=== PATIENT | male | born 1965 | race American Indian/Alaskan Native ===

== ENCOUNTER 2019-02-07 00:53 | Emergency (ER) | payer MEDICAID ==
[2019-02-07 02:44] LABS: INR 1.04 (0.87-1.13)
[2019-02-07 02:45] LABS: Partial Thromboplastin Time 31.1 Sec. (24.2-36.6)
[2019-02-07] MEDS ORDERED: LOVENOX SUB-Q ONE (04:49)
--- NOTE | 2019-02-07 06:37 | Emergency Department Report ---
ED General Adult HPI - General Chief complaint: Recheck/Abnormal Lab/Rx Stated complaint: ABNORMAL LABS Source: patient Mode of arrival: Ambulatory Limitations: No Limitations - History of Present Illness Initial comments: This is a 53-year-old male with a history of mitral valve prolapse who presented to the ED with subtherapeutic INR from Coumadin after being sent to the ED by his locker attendant Dr. Thomas to get Lovenox injection. Patient had no taken his Coumadin for one week and when he visited his locker attendant office 12 hours ago his INR was low, and to help prevent coagulation, the patient was given a prescription of Lovenox but could not have it filled so he was told to come to the ED to better Lovenox injection. Patient states that he has not taken his Coumadin for over 1 week and had to be evaluated by his locker attendant before a new prescription of Coumadin call be return for him. Patient denies chest pain, shortness of breath, dizziness, nosebleed, leg pain, shortness of breath, dizziness or headache. MD Complaint: Subtherapeutic INR -: Sudden, hour(s) (12) Radiation: non-radiation Severity scale (0 -10): 0 Quality: dull Improves with: none Worsens with: none Associated Symptoms: denies other symptoms. denies: confusion, chest pain, cough, diaphoresis, fever/chills, headaches, malaise, nausea/vomiting, shortness of breath, syncope Treatments Prior to Arrival: none - Related Data Home Medications Medication Instructions Recorded Confirmed Last Taken Omeprazole 40 mg PO DAILY 03/27/15 07/17/15 07/16/15 40 mg oxyCODONE /ACETAMINOPHEN [Percocet 1 tab PO Q6HR PRN 03/27/15 07/17/15 07/15/15 5/325 mg] Acetaminophen [Acetaminophen TAB] 325 mg PO PRN PRN 07/17/15 07/17/15 07/15/15 Aspirin EC [Halfprin EC] 81 mg PO DAILY 07/17/15 07/17/15 07/16/15 AtorvaSTATin [Lipitor] 20 mg PO DAILY 07/17/15 07/17/15 07/16/15 Docusate Sodium [Promolaxin TAB] 100 mg PO DAILY 07/17/15 07/17/15 07/16/15 Lipase/Protease/Amylase [Creon 1 cap PO DAILY 07/17/15 07/17/15 07/16/15 24,000 Units Capsule] Metoprolol Tartrate 25 mg PO DAILY 07/17/15 07/17/15 07/16/15 Warfarin Sodium 7.5 mg PO DAILY 07/17/15 07/17/15 07/16/15 Allergies Allergy/AdvReac Type Severity Reaction Status Date / Time No Known Allergies Allergy Verified 07/17/15 07:47 ED Review of Systems ROS: Stated complaint: ABNORMAL LABS Other details as noted in HPI Constitutional: denies: chills, fever Eyes: denies: eye pain, eye discharge, vision change ENT: denies: ear pain, throat pain Respiratory: denies: cough, shortness of breath, wheezing Cardiovascular: denies: chest pain, palpitations Endocrine: no symptoms reported Gastrointestinal: denies: abdominal pain, nausea, diarrhea Genitourinary: denies: urgency, dysuria Musculoskeletal: denies: back pain, joint swelling, arthralgia Skin: denies: rash, lesions Neurological: denies: headache, weakness, paresthesias Psychiatric: denies: anxiety, depression Hematological/Lymphatic: denies: easy bleeding, easy bruising ED Past Medical Hx - Past Medical History Previous Medical History?: Yes Hx Hypertension: No Hx Congestive Heart Failure: No Hx Diabetes: Yes (unsure if he has it or not) Hx GERD: Yes Hx Liver Disease: Yes (chronic pancreatitis) Hx Renal Disease: Yes (Acute renal failure) Hx Arthritis: Yes Hx Asthma: No Hx COPD: No Hx HIV: No Additional medical history: PUD, pancreatitis, heart murmur - Surgical History Past Surgical History?: Yes Additional Surgical History: heart cath. mitral valve replacemnt - Social History Smoking Status: Current Every Day Smoker Substance Use Type: Alcohol, Marijuana - Medications Home Medications: Home Medications Medication Instructions Recorded Confirmed Last Taken Type Omeprazole 40 mg PO DAILY 03/27/15 07/17/15 07/16/15 History 40 mg oxyCODONE /ACETAMINOPHEN [Percocet 1 tab PO Q6HR PRN 03/27/15 07/17/15 07/15/15 History 5/325 mg] Acetaminophen [Acetaminophen TAB] 325 mg PO PRN PRN 07/17/15 07/17/15 07/15/15 History Aspirin EC [Halfprin EC] 81 mg PO DAILY 07/17/15 07/17/15 07/16/15 History AtorvaSTATin [Lipitor] 20 mg PO DAILY 07/17/15 07/17/15 07/16/15 History Docusate Sodium [Promolaxin TAB] 100 mg PO DAILY 07/17/15 07/17/15 07/16/15 History Lipase/Protease/Amylase [Creon Dr 1 cap PO DAILY 07/17/15 07/17/15 07/16/15 History 24,000 Units Capsule] Metoprolol Tartrate 25 mg PO DAILY 07/17/15 07/17/15 07/16/15 History Warfarin Sodium 7.5 mg PO DAILY 07/17/15 07/17/15 07/16/15 History ED Physical Exam - General Limitations: No Limitations General appearance: alert, in no apparent distress - Head Head exam: Present: atraumatic, normocephalic, normal inspection - Eye Eye exam: Present: normal appearance, PERRL, EOMI - ENT ENT exam: Present: normal exam, normal orophraynx, mucous membranes moist, TM's normal bilaterally, normal external ear exam - Neck Neck exam: Present: normal inspection, full ROM - Respiratory Respiratory exam: Present: normal lung sounds bilaterally. Absent: respiratory distress, wheezes, rales, rhonchi, chest wall tenderness, accessory muscle use, decreased breath sounds - Cardiovascular Cardiovascular Exam: Present: regular rate, normal rhythm, normal heart sounds. Absent: systolic murmur, diastolic murmur, rubs, gallop - GI/Abdominal GI/Abdominal exam: Present: soft, normal bowel sounds. Absent: tenderness, guarding, rebound, hyperactive bowel sounds, hypoactive bowel sounds - Rectal Rectal exam: Present: deferred - Extremities Exam Extremities exam: Present: normal inspection, full ROM, normal capillary refill - Back Exam Back exam: Present: normal inspection, full ROM - Neurological Exam Neurological exam: Present: alert, oriented X3, CN II-XII intact, normal gait, reflexes normal - Psychiatric Psychiatric exam: Present: normal affect, normal mood - Skin Skin exam: Present: warm, dry, intact, normal color. Absent: rash ED Course Vital Signs 02/07/19 01:00 Temperature 98.4 F Pulse Rate 86 Respiratory 18 Rate Blood Pressure 143/83 O2 Sat by Pulse 97 Oximetry - Reevaluation(s) Reevaluation #1: 02/07/19 06:34 This is a 53-year-old male with a history of mitral valve prolapse who presented to the ED with subtherapeutic INR from Coumadin after being sent to the ED by his locker attendant Dr. Thomas to get Lovenox injection. Patient had no taken his Coumadin for one week and when he visited his locker attendant office 12 hours ago his INR was low, and to help prevent coagulation, the patient was given a prescription of Lovenox but could not have it filled so he was told to come to the ED to better Lovenox injection. In the ED, patient is alert and oriented 3 and is not in distress. Patient lab test results show subtherapeutic INR or 1.04. Patient was given Lovenox injection 60 mg subcutaneously. Patient already has prescription filled for Coumadin and she'll start his Coumadin today. Patient was advised to follow-up with his locker attendant in 5-7 days for repeat reevaluation. Patient was otherwise advised to return to the ED immediately if symptoms get worse. ED Medical Decision Making - Medical Decision Making This is a 53-year-old male with a history of mitral valve prolapse who presented to the ED with subtherapeutic INR from Coumadin after being sent to the ED by his locker attendant Dr. Thomas to get Lovenox injection. Patient had no taken his Coumadin for one week and when he visited his locker attendant office 12 hours ago his INR was low, and to help prevent coagulation, the patient was given a prescription of Lovenox but could not have it filled so he was told to come to the ED to better Lovenox injection. In the ED, patient is alert and oriented 3 and is not in distress. Patient lab test results show subtherapeutic INR or 1.04. Patient was given Lovenox injection 60 mg subcutaneously. Patient already has prescription filled for Coumadin and she'll start his Coumadin today. Patient was advised to follow-up with his locker attendant in 5-7 days for repeat reevaluation. Patient was otherwise advised to return to the ED immediately if symptoms get worse. - Differential Diagnosis Subtherapeutic INR Critical care attestation.: If time is entered above; I have spent that time in minutes in the direct care of this critically ill patient, excluding procedure time. ED Disposition Clinical Impression: Subtherapeutic anticoagulation Disposition: DC-01 TO HOME OR SELFCARE Is pt being admited?: No Does the pt Need Aspirin: No Condition: Stable Additional Instructions: Take your previously prescribed medications. Follow-up with your primary care physician and your locker attendant as advised. Return to the ED immediately if symptoms get worse. Referrals: STACEY HEAD MD [Primary Care Provider] - 3-5 Days Time of Disposition: 06:32 Print Language: MAURITANIAN
[2019-02-07 06:45] VITALS: BP 115/76
== END 2019-02-07 06:45 | disposition home or self-care (01) ==
LOC: ED 00:53
DX: R79.1 Abnormal coagulation profile (principal); E11.9 Type 2 diabetes mellitus without complications; K21.9 Gastro-esophageal reflux disease without esophagitis; M19.90 Unspecified osteoarthritis, unspecified site; K27.9 Peptic ulcer, site unspecified, unspecified as acute or chronic, without hemorrhage or perforation; I34.1 Nonrheumatic mitral (valve) prolapse; F17.200 Nicotine dependence, unspecified, uncomplicated; F12.10 Cannabis abuse, uncomplicated; Z90.49 Acquired absence of other specified parts of digestive tract; Z79.899 Other long term (current) drug therapy
CPT/HCPCS: 36415; 85610; 85730; 96372; 99283; J1650

== ENCOUNTER 2021-07-24 20:25 | Inpatient (IN) | payer SELFPAY ==
--- NOTE | 2021-07-24 21:09 | XRay Report ---
CHEST 1 VIEW 07/24/2021 8:49 PM INDICATION / CLINICAL INFORMATION: Dyspnea. COMPARISON: May 2011 FINDINGS: SUPPORT DEVICES: None. HEART / MEDIASTINUM: No significant abnormality. LUNGS / PLEURA: No significant pulmonary or pleural abnormality. No pneumothorax. ADDITIONAL FINDINGS: No significant additional findings. IMPRESSION: 1. No acute findings. Signer Name: Nikhil Cárdenas DO Signed: 07/24/2021 9:04 PM Workstation Name: [id number]
[2021-07-24 21:10] LABS: Basophils # (Auto) 0.1 K/mm3 (0.0-0.1); Basophils % (Auto) 1.1 % (0.0-1.8); Eosinophils % (Auto) 0.3 % (0.0-4.3); Lymphocytes # (Auto) 1.3 K/mm3 (1.2-5.4); Lymphocytes % (Auto) 15.7 % (13.4-35.0); Mean Corpuscular HGB Conc 32 % (32-34); Mean Corpuscular Volume 101 fl (84-94); Monocytes # (Auto) 0.5 K/mm3 (0.0-0.8); Monocytes % (Auto) 6.1 % (0.0-7.3); Platelet Count 215 K/mm3 (140-440); Red Blood Count 1.28 M/mm3 (3.65-5.03)
[2021-07-24 21:12] LABS: Red Cell Distribution Width 21.3 % (13.2-15.2)
[2021-07-24 21:14] LABS: Hemoglobin 4.2 gm/dl (11.8-15.2)
[2021-07-24 21:24] LABS: Creatine Kinase MB 1.4 ng/mL (0.0-4.0)
[2021-07-24 21:25] LABS: Alanine Aminotransferase 8 units/L (7-56); Blood Urea Nitrogen 18 mg/dL (9-20); Calcium 8.7 mg/dL (8.4-10.2); Hemolysis Index 11
[2021-07-24 21:26] LABS: BUN/Creatinine Ratio 26
[2021-07-24 21:30] LABS: INR 5.26 (0.87-1.13)
[2021-07-24] MEDS: SODIUM CHLORIDE 0.9% 1000 ML 1,000 ML IV ONE (21:45)
[2021-07-24] MEDS: PHYTONADIONE(ADULT ONLY) 10 MG in SODIUM CHLORIDE 0.9% 50 ML IV ONE (22:12)
[2021-07-24] MEDS: SODIUM CHLORIDE 0.9% 500 ML 500 ML IV ONE (22:13)
[2021-07-24] MEDS ORDERED: PANTOPRAZOLE 40 MG INJ IV ONE (22:26)
--- NOTE | 2021-07-24 22:28 | Emergency Department Report ---
ED Palpitations HPI - General Chief Complaint: Arrhythmia/Palpitations Stated Complaint: TACHYCARDIA Time Seen by Provider: 07/24/21 20:33 Source: patient, EMS Mode of arrival: Stretcher Limitations: No Limitations - History of Present Illness Initial Comments: 56 years old with history of chronic pancreatitis , mitral valve regurge s/p repair on coumadin , peptic ulcer disease brought in by AMS for heart starting racing about 3 days ago. Been having dark stools for 2-3 weeks" Pt has not been to the doctor to have that checked out at this time; states "have had this episode before but it went away on it's own" EMS states pt was sinus tach on monitor HR in the 130-140's [address] to the hospital. Complaint: rapid heart beat -: Gradual, days(s) Context: occured during rest Arrythmia History: on anti-coagulants Associated Symptoms: denies: denies other symptoms, chest pain, syncope, near- syncope, diaphoresis, cough - Related Data Home Medications Medication Instructions Recorded Confirmed Last Taken Omeprazole 40 mg PO DAILY 03/27/15 07/17/15 07/16/15 40 mg oxyCODONE /ACETAMINOPHEN [Percocet 1 tab PO Q6HR PRN 03/27/15 07/17/15 07/15/15 5/325 mg] Acetaminophen [Acetaminophen TAB] 325 mg PO PRN PRN 07/17/15 07/17/15 07/15/15 Aspirin EC [Halfprin EC] 81 mg PO DAILY 07/17/15 07/17/15 07/16/15 AtorvaSTATin [Lipitor] 20 mg PO DAILY 07/17/15 07/17/15 07/16/15 Docusate Sodium [Promolaxin TAB] 100 mg PO DAILY 07/17/15 07/17/15 07/16/15 Lipase/Protease/Amylase [Creon Dr 1 cap PO DAILY 07/17/15 07/17/15 07/16/15 24,000 Unit Capsule] Metoprolol Tartrate 25 mg PO DAILY 07/17/15 07/17/15 07/16/15 Warfarin Sodium 7.5 mg PO DAILY 07/17/15 07/17/15 07/16/15 Allergies Allergy/AdvReac Type Severity Reaction Status Date / Time No Known Allergies Allergy Verified 07/17/15 07:47 ED Review of Systems ROS: Stated complaint: TACHYCARDIA Other details as noted in HPI Constitutional: denies: chills, fever Eyes: denies: eye pain, eye discharge, vision change ENT: denies: ear pain, throat pain Respiratory: denies: cough, shortness of breath, wheezing Cardiovascular: denies: chest pain, palpitations Endocrine: no symptoms reported Gastrointestinal: denies: abdominal pain, nausea, diarrhea Genitourinary: denies: urgency, dysuria Musculoskeletal: denies: back pain, joint swelling, arthralgia Skin: denies: rash, lesions Neurological: denies: headache, weakness, paresthesias Psychiatric: denies: anxiety, depression Hematological/Lymphatic: denies: easy bleeding, easy bruising ED Past Medical Hx - Past Medical History Previous Medical History?: No Hx Hypertension: Yes Hx Congestive Heart Failure: No Hx Diabetes: Yes (unsure if he has it or not) Hx GERD: Yes Hx Liver Disease: Yes (chronic pancreatitis) Hx Renal Disease: Yes (Acute renal failure) Hx Arthritis: Yes Hx Asthma: No Hx COPD: No Hx HIV: No Additional medical history: PUD, pancreatitis, heart murmur - Surgical History Past Surgical History?: Yes Additional Surgical History: heart cath. mitral valve replacemnt - Social History Smoking Status: Light Tobacco Smoker Substance Use Type: Alcohol - Medications Home Medications: Home Medications Medication Instructions Recorded Confirmed Last Taken Type Omeprazole 40 mg PO DAILY 03/27/15 07/17/15 07/16/15 History 40 mg oxyCODONE /ACETAMINOPHEN [Percocet 1 tab PO Q6HR PRN 03/27/15 07/17/15 07/15/15 History 5/325 mg] Acetaminophen [Acetaminophen TAB] 325 mg PO PRN PRN 07/17/15 07/17/15 07/15/15 History Aspirin EC [Halfprin EC] 81 mg PO DAILY 07/17/15 07/17/15 07/16/15 History AtorvaSTATin [Lipitor] 20 mg PO DAILY 07/17/15 07/17/15 07/16/15 History Docusate Sodium [Promolaxin TAB] 100 mg PO DAILY 07/17/15 07/17/15 07/16/15 History Lipase/Protease/Amylase [Creon Dr 1 cap PO DAILY 07/17/15 07/17/15 07/16/15 History 24,000 Unit Capsule] Metoprolol Tartrate 25 mg PO DAILY 07/17/15 07/17/15 07/16/15 History Warfarin Sodium 7.5 mg PO DAILY 07/17/15 07/17/15 07/16/15 History ED Physical Exam - General Limitations: No Limitations General appearance: alert - Head Head exam: Present: atraumatic, normocephalic - Eye Eye exam: Present: normal appearance - ENT ENT exam: Present: mucous membranes moist - Neck Neck exam: Present: normal inspection - Respiratory Respiratory exam: Present: normal lung sounds bilaterally. Absent: respiratory distress - Cardiovascular Cardiovascular Exam: Present: normal rhythm, tachycardia. Absent: systolic mu rmur, diastolic murmur, rubs, gallop - GI/Abdominal GI/Abdominal exam: Present: soft, normal bowel sounds - Rectal Rectal exam: Present: deferred - Extremities Exam Extremities exam: Present: normal inspection - Back Exam Back exam: Present: normal inspection - Neurological Exam Neurological exam: Present: alert, oriented X3 - Psychiatric Psychiatric exam: Present: normal affect, normal mood - Skin Skin exam: Present: warm, dry, intact, normal color. Absent: rash ED Course Vital Signs 07/24/21 20:31 Temperature 98.6 F Pulse Rate 124 H Respiratory 22 Rate Blood Pressure 124/67 O2 Sat by Pulse 100 Oximetry ED Medical Decision Making - Lab Data Result diagrams: 07/24/21 20:43 07/24/21 20:43 - Radiology Data Radiology results: report reviewed, image reviewed - Medical Decision Making HR on arrival was 140s work up showed : - Low H.H : typed and screened packed RBCs , 3 units - Melena : will start PPI - Increased INR : will reverse with Vitamin K - Tachy : sinus seems ry to anemia , corrected with fluids Critical care attestation.: If time is entered above; I have spent that time in minutes in the direct care of this critically ill patient, excluding procedure time. ED Disposition Clinical Impression: Palpitation, Anemia, Supratherapeutic INR, Melena Disposition: ADMITTED INPATIENT Is pt being admited?: Yes Does the pt Need Aspirin: No Condition: Stable Referrals: NANCY PINTO MD [Primary Care Provider] - 3-5 Days
[2021-07-24] MEDS ORDERED: ACETAMINOPHEN 325 MG TAB PO PRN ×2 (22:31→22:50)
[2021-07-24] MEDS ORDERED: ONDANSETRON 4 MG/2 ML INJ IV PRN ×2 (22:31→22:50)
[2021-07-24] MEDS ORDERED: ALBUTEROL 2.5 MG/3 ML NEBU IH PRN (22:50)
[2021-07-24] MEDS ORDERED: MORPHINE 2 MG/1 ML INJ IV PRN (22:50)
[2021-07-24] MEDS ORDERED: HYDROmorphone 1 MG/1 ML INJ IV PRN (22:50)
--- NOTE | 2021-07-24 22:58 | History and Physical Report ---
History of Present Illness Date of examination: 07/24/21 Date of admission: 07/24/21 Chief complaint: Arrhythmia Palpitation History of present illness: 56 years old with history of chronic pancreatitis , mitral valve regurge s/p repair on coumadin , peptic ulcer disease was brought to the emergency room because of heart starting racing about 3 days ago. Patient having dark stools for 2-3 weeks" Pt has not been to the doctor to have that checked out at this time; states "have had this episode before but it went away on it's own" EMS states pt was sinus tach on monitor HR in the 130-140's on the way to the hospital. In the emergency room patient hemoglobin is 4.2 and hematocrit 13.2, patient is on warfarin. Patient PT is 55.8 and INR 5.26. So going to admit the patient. We will transfuse 3 unit of packed red blood cell. Patient also get vitamin K 10 mg IV x1 dose. Will consult GI for evaluation Past History Past Medical History: arthritis (PUD, pancreatitis, heart murmur), diabetes, GERD, hypertension, liver disease, renal failure Past Surgical History: Other (heart cath. mitral valve replacemnt) Social history: other (Light Tobacco Smoker) Family history: no significant family history Medications and Allergies Allergies Allergy/AdvReac Type Severity Reaction Status Date / Time No Known Allergies Allergy Verified 07/17/15 07:47 Home Medications Medication Instructions Recorded Confirmed Last Taken Type Omeprazole 40 mg PO DAILY 03/27/15 07/17/15 07/16/15 History 40 mg oxyCODONE /ACETAMINOPHEN [Percocet 1 tab PO Q6HR PRN 03/27/15 07/17/15 07/15/15 History 5/325 mg] Acetaminophen [Acetaminophen TAB] 325 mg PO PRN PRN 07/17/15 07/17/15 07/15/15 History Aspirin EC [Halfprin EC] 81 mg PO DAILY 07/17/15 07/17/15 07/16/15 History AtorvaSTATin [Lipitor] 20 mg PO DAILY 07/17/15 07/17/15 07/16/15 History Docusate Sodium [Promolaxin TAB] 100 mg PO DAILY 07/17/15 07/17/15 07/16/15 History Lipase/Protease/Amylase [Creon Dr 1 cap PO DAILY 07/17/15 07/17/15 07/16/15 History 24,000 Unit Capsule] Metoprolol Tartrate 25 mg PO DAILY 07/17/15 07/17/15 07/16/15 History Warfarin Sodium 7.5 mg PO DAILY 07/17/15 07/17/15 07/16/15 History Active Meds: Active Medications Acetaminophen (Acetaminophen 325 Mg Tab) 650 mg PO Q4H PRN PRN Reason: Pain MILD(1-3)/Fever >100.5/BECERRA Acetaminophen (Acetaminophen 325 Mg Tab) 650 mg PO Q4H PRN PRN Reason: Pain MILD(1-3)/Fever >100.5/BECERRA Albuterol (Albuterol 2.5 Mg/3 Ml Nebu) 2.5 mg IH Q3HRT PRN PRN Reason: Shortness Of Breath Albuterol/Ipratropium (Ipratropium/Albuterol Sulfate 3 Ml Ampul.Neb) 1 ampul IH Q6HRT MAGGIE Atorvastatin Calcium (Atorvastatin 20 Mg Tab) 20 mg PO DAILY MAGGIE Hydromorphone HCl (Hydromorphone 1 Mg/1 Ml Inj) 0.5 mg IV Q3H PRN PRN Reason: Pain , Severe (7-10) Dextrose/Sodium Chloride (D5/0.45ns) 1,000 mls @ 100 mls/hr IV DIRECT MAGGIE Miscellaneous Medication (Lipase/Protease/Amylase [Creon Dr 24,000 Unit Capsule]) 1 cap PO DAILY MAGGIE Morphine Sulfate (Morphine 2 Mg/1 Ml Inj) 2 mg IV Q4H PRN PRN Reason: Pain, Moderate (4-6) Ondansetron HCl (Ondansetron 4 Mg/2 Ml Inj) 4 mg IV Q8H PRN PRN Reason: Nausea And Vomiting Ondansetron HCl (Ondansetron 4 Mg/2 Ml Inj) 4 mg IV Q8H PRN PRN Reason: Nausea And Vomiting Sodium Chloride (Sodium Chloride 0.9% 10 Ml Flush Syringe) 10 ml IV BID MAGGIE Sodium Chloride (Sodium Chloride 0.9% 10 Ml Flush Syringe) 10 ml IV PRN PRN PRN Reason: LINE FLUSH Sodium Chloride (Sodium Chloride 0.9% 10 Ml Flush Syringe) 10 ml IV BID MAGGIE Sodium Chloride (Sodium Chloride 0.9% 10 Ml Flush Syringe) 10 ml IV PRN PRN PRN Reason: LINE FLUSH Review of Systems All systems: negative Cardiovascular: palpitations, lightheadedness Gastrointestinal: melena Exam - Constitutional Vitals: Temp Pulse Resp BP Pulse Ox 98.6 F 124 H 22 124/67 100 07/24/21 20:31 07/24/21 20:31 07/24/21 20:31 07/24/21 20:31 07/24/21 20:31 General appearance: Present: no acute distress, well-nourished - EENT Eyes: Present: PERRL ENT: hearing intact, clear oral mucosa - Neck Neck: Present: supple, normal ROM - Respiratory Respiratory effort: normal Respiratory: bilateral: CTA - Cardiovascular Heart Sounds: Present: S1 & S2. Absent: rub, click - Extremities Extremities: pulses symmetrical, No edema Peripheral Pulses: within normal limits - Abdominal General gastrointestinal: Present: soft, non-tender, non-distended, normal bowel sounds Male genitourinary: Present: normal - Integumentary Integumentary: Present: clear, warm, dry - Musculoskeletal Musculoskeletal: gait normal, strength equal bilaterally - Psychiatric Psychiatric: appropriate mood/affect, intact judgment & insight - Neurologic Neurologic: CNII-XII intact, moves all extremities HEART Score - HEART Score Troponin: Troponin T < 0.010 ng/mL (0.00-0.029) 07/24/21 20:43 Results - Labs CBC & Chem 7: 07/24/21 20:43 07/24/21 20:43 Labs: Laboratory Last Values WBC 8.3 K/mm3 (4.5-11.0) 07/24/21 20:43 RBC 1.28 M/mm3 (3.65-5.03) L 07/24/21 20:43 Hgb 4.2 gm/dl (11.8-15.2) L* 07/24/21 20:43 Hct 13.0 % (35.5-45.6) L* 07/24/21 20:43 MCV 101 fl (84-94) H 07/24/21 20:43 MCH 33 pg (28-32) H 07/24/21 20:43 MCHC 32 % (32-34) 07/24/21 20:43 RDW 21.3 % (13.2-15.2) H 07/24/21 20:43 Plt Count 215 K/mm3 (140-440) 07/24/21 20:43 Lymph % (Auto) 15.7 % (13.4-35.0) 07/24/21 20:43 Kerr % (Auto) 6.1 % (0.0-7.3) 07/24/21 20:43 Eos % (Auto) 0.3 % (0.0-4.3) 07/24/21 20:43 Baso % (Auto) 1.1 % (0.0-1.8) 07/24/21 20:43 Lymph # (Auto) 1.3 K/mm3 (1.2-5.4) 07/24/21 20:43 Kerr # (Auto) 0.5 K/mm3 (0.0-0.8) 07/24/21 20:43 Eos # (Auto) 0.0 K/mm3 (0.0-0.4) 07/24/21 20:43 Baso # (Auto) 0.1 K/mm3 (0.0-0.1) 07/24/21 20:43 Seg Neutrophils % 76.8 % (40.0-70.0) H 07/24/21 20:43 Seg Neutrophils # 6.4 K/mm3 (1.8-7.7) 07/24/21 20:43 PT 55.8 Sec. (12.2-14.9) H 07/24/21 20:43 INR 5.26 (0.87-1.13) H* 07/24/21 20:43 Sodium 137 mmol/L (137-145) 07/24/21 20:43 Potassium 3.9 mmol/L (3.6-5.0) 07/24/21 20:43 Chloride 103.3 mmol/L (98-107) 07/24/21 20:43 Carbon Dioxide 20 mmol/L (22-30) L 07/24/21 20:43 Anion Gap 18 mmol/L 07/24/21 20:43 BUN 18 mg/dL (9-20) 07/24/21 20:43 Creatinine 0.7 mg/dL (0.8-1.3) L 07/24/21 20:43 Estimated GFR > 60 ml/min 07/24/21 20:43 BUN/Creatinine Ratio 26 % 07/24/21 20:43 Glucose 107 mg/dL (75-100) H 07/24/21 20:43 Calcium 8.7 mg/dL (8.4-10.2) 07/24/21 20:43 Magnesium 1.80 mg/dL (1.7-2.3) 07/24/21 20:43 Total Bilirubin 0.20 mg/dL (0.1-1.2) 07/24/21 20:43 AST 22 units/L (5-40) 07/24/21 20:43 ALT 8 units/L (7-56) 07/24/21 20:43 Alkaline Phosphatase 57 units/L (35-129) 07/24/21 20:43 Total Creatine Kinase 73 units/L (55-170) 07/24/21 20:43 CK-MB (CK-2) 1.4 ng/mL (0.0-4.0) 07/24/21 20:43 CK-MB (CK-2) Rel Index 1.9 (0-4) 07/24/21 20:43 Troponin T < 0.010 ng/mL (0.00-0.029) 07/24/21 20:43 Total Protein 6.2 g/dL (6.3-8.2) L 07/24/21 20:43 Albumin 4.0 g/dL (3.9-5) 07/24/21 20:43 Albumin/Globulin Ratio 1.8 % 07/24/21 20:43 Lipase 28 units/L (13-60) 07/24/21 20:43 Blood Type O POSITIVE 07/24/21 21:34 Crossmatch See Detail 07/24/21 21:34 Microbiology: Microbiology 07/24/21 Unknown Stool Stool Occult Blood (PATO) - Final - Imaging and Cardiology Chest x-ray: report reviewed Assessment and Plan VTE prophylaxis?: Mechanical Plan of care discussed with patient/family: Yes - Patient Problems (1) Anemia Current Visit: Yes Status: Acute Plan to address problem: Admit the patient to the medical telemetry. NPO. Protonix 40 mg IV every 12 hours. Were giving 3 unit of packed red blood cell. Reconsult GI for evaluation. Recheck CBC in the morning. We will hold the warfarin (2) Melena Current Visit: Yes Status: Acute Plan to address problem: NPO. Protonix 40 mg IV every 12 hours. Were giving 3 unit of packed red blood cell. Reconsult GI for evaluation. Recheck CBC in the morning. We will hold the warfarin (3) Palpitation Current Visit: Yes Status: Acute Plan to address problem: Most likely secondary to dehydration and anemia. We put the patient on D5 half- normal saline at the rate of 100 cc/h. Transfusing 3 unit of packed red blood cell. Consult cardiology if needed (4) Supratherapeutic INR Current Visit: Yes Status: Acute Plan to address problem: We hold the Coumadin. Patient got 20 mg of vitamin K IV. Recheck PT/INR in the morning (5) Alcohol abuse Current Visit: No Status: Acute Plan to address problem: Counseled regarding quit drinking. Put the patient on thiamine folic acid banana bag (6) Alcoholic liver disease Current Visit: No Status: Acute Plan to address problem: NPO. Protonix 40 mg IV every 12 hours. consult GI for evaluation. Recheck Cmp in the morning. (7) Chronic alcoholic pancreatitis Current Visit: No Status: Acute Plan to address problem: NPO. Protonix 40 mg IV every 12 hours. consult GI for evaluation. Recheck Cmp in the morning. (8) Peptic ulcer disease Current Visit: No Status: Acute Plan to address problem: Protonix 40 mg IV every 12 hours. consult GI for evaluation. Recheck Cmp in the morning. (9) Mitral valve replaced Current Visit: Yes Status: Acute Plan to address problem: We hold the Coumadin. Patient get 10 mg of vitamin K IV x1 dose. Restart Coumadin when okay with GI. (10) DVT prophylaxis Current Visit: Yes Status: Acute Plan to address problem: SCD for DVT prophylaxis. Protonix 40 mg IV every 12 hours for GI prophylaxis. Patient is a full code
[2021-07-25] MEDS ORDERED: SODIUM CHLORIDE 0.9% 500 ML 500 ML ONE (00:34)
[2021-07-25] MEDS ORDERED: IPRATROPIUM/ALBUTEROL SULFATE 3 ML AMPUL.NEB IH SCH ×2 (02:00→08:00)
[2021-07-25] MEDS: SODIUM CHLORIDE 0.9% 1000 ML 1,000 ML IV ONE (02:35)
[2021-07-25] MEDS: SODIUM CHLORIDE 0.9% 500 ML 500 ML IV ONE (02:36)
[2021-07-25] MEDS: PHYTONADIONE(ADULT ONLY) 10 MG in SODIUM CHLORIDE 0.9% 50 ML IV ONE (02:37)
[2021-07-25] MEDS: D5W/0.45% NACL 1,000 ML IV SCH ×2 (08:57→22:30)
[2021-07-25] MEDS: PANTOPRAZOLE 40 MG INJ IV SCH ×2 (09:02→22:29)
[2021-07-25] MEDS: METOPROLOL TARTRATE 25 MG TAB PO SCH (09:30)
[2021-07-25] MEDS ORDERED: AMYLASE PO SCH (10:00)
[2021-07-25] MEDS ORDERED: [UNRECOGNIZED DRUG - OTHER] PO SCH (10:00)
[2021-07-25] MEDS ORDERED: LIPASE PO SCH (10:00)
[2021-07-25] MEDS ORDERED: PROTEASE PO SCH (10:00)
[2021-07-25 15:17] LABS: Basophils % (Auto) 0.7 % (0.0-1.8); Eosinophils # (Auto) 0.1 K/mm3 (0.0-0.4); Eosinophils % (Auto) 1.1 % (0.0-4.3); Hematocrit 26.6 % (35.5-45.6); Hemoglobin 8.7 gm/dl (11.8-15.2); Lymphocytes # (Auto) 1.2 K/mm3 (1.2-5.4); Lymphocytes % (Auto) 16.3 % (13.4-35.0); Mean Corpuscular HGB Conc 33 % (32-34); Mean Corpuscular Volume 95 fl (84-94); Monocytes # (Auto) 0.6 K/mm3 (0.0-0.8); Monocytes % (Auto) 7.6 % (0.0-7.3); Platelet Count 144 K/mm3 (140-440); Red Blood Count 2.81 M/mm3 (3.65-5.03); Red Cell Distribution Width 17.8 % (13.2-15.2)
[2021-07-25 15:27] LABS: Blood Urea Nitrogen 13 mg/dL (9-20); Calcium 7.6 mg/dL (8.4-10.2); Hemolysis Index 3; INR 1.19 (0.87-1.13)
[2021-07-25 15:28] LABS: BUN/Creatinine Ratio 19
--- NOTE | 2021-07-25 15:59 | Progress Note ---
Assessment and Plan (1) Anemia Current Visit: Yes Status: Acute Plan to address problem: Admit the patient to the medical telemetry. NPO. Protonix 40 mg IV every 12 hours. Were giving 3 unit of packed red blood cell. Reconsult GI for evaluation. Recheck CBC in the morning. We will hold the warfarin (2) Melena Current Visit: Yes Status: Acute Plan to address problem: NPO. Protonix 40 mg IV every 12 hours. Were giving 3 unit of packed red blood cell. Reconsult GI for evaluation. Recheck CBC in the morning. We will hold the warfarin (3) Palpitation Current Visit: Yes Status: Acute Plan to address problem: Most likely secondary to dehydration and anemia. We put the patient on D5 half- normal saline at the rate of 100 cc/h. Transfusing 3 unit of packed red blood cell. Consult cardiology if needed (4) Supratherapeutic INR Current Visit: Yes Status: Acute Plan to address problem: We hold the Coumadin. Patient got 20 mg of vitamin K IV. Recheck PT/INR in the morning (5) Alcohol abuse Current Visit: No Status: Acute Plan to address problem: Counseled regarding quit drinking. Put the patient on thiamine folic acid banana bag (6) Alcoholic liver disease Current Visit: No Status: Acute Plan to address problem: NPO. Protonix 40 mg IV every 12 hours. consult GI for evaluation. Recheck Cmp in the morning. (7) Chronic alcoholic pancreatitis Current Visit: No Status: Acute Plan to address problem: NPO. Protonix 40 mg IV every 12 hours. consult GI for evaluation. Recheck Cmp in the morning. (8) Peptic ulcer disease Current Visit: No Status: Acute Plan to address problem: Protonix 40 mg IV every 12 hours. consult GI for evaluation. Recheck Cmp in the morning. (9) Mitral valve replaced Current Visit: Yes Status: Acute Plan to address problem: We hold the Coumadin. Patient get 10 mg of vitamin K IV x1 dose. Restart Coumadin when okay with GI. (10) DVT prophylaxis Current Visit: Yes Status: Acute Plan to address problem: SCD for DVT prophylaxis. Protonix 40 mg IV every 12 hours for GI prophylaxis. Patient is a full code Subjective Date of service: 07/25/21 Objective - Constitutional Vitals: Vital Signs - 12hr 07/25/21 07/25/21 07/25/21 04:08 04:38 04:41 Temperature 98.2 F 98.4 F 98.2 F Pulse Rate 77 74 72 Pulse Rate [ Bilateral] Respiratory 16 16 18 Rate Respiratory Rate [Bilateral ] Blood Pressure 113/63 113/63 107/61 Blood Pressure [Left] O2 Sat by Pulse 100 100 100 Oximetry 07/25/21 07/25/21 07/25/21 04:51 04:56 05:11 Temperature 98.5 F 98.6 F 98.4 F Pulse Rate 74 74 77 Pulse Rate [ Bilateral] Respiratory 16 16 16 Rate Respiratory Rate [Bilateral ] Blood Pressure 117/64 117/65 121/74 Blood Pressure [Left] O2 Sat by Pulse 100 100 100 Oximetry 07/25/21 07/25/21 07/25/21 05:41 06:11 06:41 Temperature 98.5 F 98.4 F 98.4 F Pulse Rate 76 74 72 Pulse Rate [ Bilateral] Respiratory 16 16 16 Rate Respiratory Rate [Bilateral ] Blood Pressure 112/65 113/64 112/64 Blood Pressure [Left] O2 Sat by Pulse 100 100 100 Oximetry 07/25/21 07/25/21 07/25/21 07:11 07:30 08:00 Temperature 98.6 F 97.8 F Pulse Rate 74 69 80 Pulse Rate [ Bilateral] Respiratory 16 18 Rate Respiratory Rate [Bilateral ] Blood Pressure 110/64 Blood Pressure 106/64 [Left] O2 Sat by Pulse 100 Oximetry 07/25/21 07/25/21 07/25/21 09:39 09:40 09:44 Temperature Pulse Rate Pulse Rate [ 68 Bilateral] Respiratory Rate Respiratory 18 Rate [Bilateral ] Blood Pressure Blood Pressure [Left] O2 Sat by Pulse 100 100 Oximetry 07/25/21 07/25/21 10:51 11:30 Temperature 99.5 F Pulse Rate 69 Pulse Rate [ Bilateral] Respiratory 19 Rate Respiratory Rate [Bilateral ] Blood Pressure 111/60 Blood Pressure [Left] O2 Sat by Pulse 100 96 Oximetry - Labs CBC & Chem 7: 07/25/21 14:51 07/25/21 14:51 Labs: Abnormal lab results 07/24/21 07/24/21 07/24/21 Range/Units 20:43 20:43 20:43 RBC 1.28 L (3.65-5.03) M/mm3 Hgb 4.2 L* (11.8-15.2) gm/dl Hct 13.0 L* (35.5-45.6) % MCV 101 H (84-94) fl MCH 33 H (28-32) pg RDW 21.3 H (13.2-15.2) % Emanuel % (Auto) (0.0-7.3) % Seg Neutrophils % 76.8 H (40.0-70.0) % PT 55.8 H (12.2-14.9) Sec. INR 5.26 H* (0.87-1.13) Chloride (98-107) mmol/L Carbon Dioxide 20 L (22-30) mmol/L Creatinine 0.7 L (0.8-1.3) mg/dL Glucose 107 H (75-100) mg/dL Calcium (8.4-10.2) mg/dL Total Protein 6.2 L (6.3-8.2) g/dL Crossmatch 07/24/21 07/25/21 07/25/21 Range/Units 21:34 14:51 14:51 RBC 2.81 L (3.65-5.03) M/mm3 Hgb 8.7 L D (11.8-15.2) gm/dl Hct 26.6 L D (35.5-45.6) % MCV 95 H (84-94) fl MCH (28-32) pg RDW 17.8 H (13.2-15.2) % Emanuel % (Auto) 7.6 H (0.0-7.3) % Seg Neutrophils % 74.3 H (40.0-70.0) % PT 16.5 H (12.2-14.9) Sec. INR 1.19 H (0.87-1.13) Chloride (98-107) mmol/L Carbon Dioxide (22-30) mmol/L Creatinine (0.8-1.3) mg/dL Glucose (75-100) mg/dL Calcium (8.4-10.2) mg/dL Total Protein (6.3-8.2) g/dL Crossmatch See Detail 07/25/21 Range/Units 14:51 RBC (3.65-5.03) M/mm3 Hgb (11.8-15.2) gm/dl Hct (35.5-45.6) % MCV (84-94) fl MCH (28-32) pg RDW (13.2-15.2) % Emanuel % (Auto) (0.0-7.3) % Seg Neutrophils % (40.0-70.0) % PT (12.2-14.9) Sec. INR (0.87-1.13) Chloride 108.5 H (98-107) mmol/L Carbon Dioxide (22-30) mmol/L Creatinine 0.7 L (0.8-1.3) mg/dL Glucose 103 H (75-100) mg/dL Calcium 7.6 L (8.4-10.2) mg/dL Total Protein (6.3-8.2) g/dL Crossmatch HEART Score - HEART Score Troponin: Troponin T < 0.010 ng/mL (0.00-0.029) 07/24/21 20:43
--- NOTE | 2021-07-25 18:08 | Electrocardiograph Report ---
[facility] Test Date: 2021-07-25 Test Time: 07:56:02 Pat Name: STEPHANIE JUSTIN Department: Room: A472 1 Gender: M [employer] Developer: FERNANDO : 1965 Requested By: THOMAS DURAN Order Number: [id number] Reading MD: Jennifer Coreas Measurements Intervals [place] Rate: 68 P: 54 GA: 182 QRS: 15 QRSD: 92 T: 50 QT: 428 QTc: 455 Interpretive Statements Sinus rhythm Low voltage, extremity leads No previous ECG available for comparison Electronically Signed On 07-25-2021 18:08:12 EDT by Jennifer Coreas
--- NOTE | 2021-07-25 23:31 | Event Note ---
Date: 07/25/21 Full GI consult dictated - egd in am
[2021-07-26 05:20] LABS: Basophils # (Auto) 0.1 K/mm3 (0.0-0.1); Basophils % (Auto) 1.5 % (0.0-1.8); Eosinophils # (Auto) 0.1 K/mm3 (0.0-0.4); Eosinophils % (Auto) 1.7 % (0.0-4.3); Hematocrit 23.5 % (35.5-45.6); Hemoglobin 7.7 gm/dl (11.8-15.2); Lymphocytes # (Auto) 1.7 K/mm3 (1.2-5.4); Lymphocytes % (Auto) 20.7 % (13.4-35.0); Mean Corpuscular HGB Conc 33 % (32-34); Mean Corpuscular Volume 96 fl (84-94); Monocytes # (Auto) 0.6 K/mm3 (0.0-0.8); Monocytes % (Auto) 7.2 % (0.0-7.3); Platelet Count 149 K/mm3 (140-440); Red Blood Count 2.46 M/mm3 (3.65-5.03); Red Cell Distribution Width 17.4 % (13.2-15.2)
[2021-07-26 05:42] LABS: Blood Urea Nitrogen 11 mg/dL (9-20); Calcium 7.4 mg/dL (8.4-10.2); Hemolysis Index 4
[2021-07-26 05:43] LABS: BUN/Creatinine Ratio 16
[2021-07-26 07:59] VITALS: BP 115/66
[2021-07-26] MEDS ORDERED: SODIUM CHLORIDE 0.9% 1000 ML 1,000 ML ONE (08:05)
[2021-07-26] MEDS ORDERED: propofoL 200 MG/20 ML VIAL IV ONE (08:21)
[2021-07-26] MEDS ORDERED: LIDOCAINE MPF (2%) 20 MG/1 ML VIAL 5 ML ONE (08:21)
--- NOTE | 2021-07-26 08:28 | Anesthesia Consultation ---
Anesthesia Consult and Med Hx Date of service: 07/26/21 - Airway Anesthetic Teeth Evaluation: Good ROM Head & Neck: Adequate Mental/Hyoid Distance: Adequate Mallampati Class: Class II Intubation Access Assessment: Probably Good - Pulmonary Exam CTA: Yes - Cardiac Exam Cardiac Exam: RRR - Pre-Operative Health Status ASA Pre-Surgery Classification: ASA3 Proposed Anesthetic Plan: MAC - Pulmonary Hx Smoking: Yes (4-5 cigarettes/day) Hx Asthma: No COPD: No Hx Pneumonia: No Hx Sleep Apnea: No - Cardiovascular System Hx Hypertension: Yes Hx Angina: Yes Hx Valvular Heart Disease: Yes (MVP s/p repair) Hx Heart Murmur: Yes - Central Nervous System Hx Neuromuscular Disorder: No Hx Psychiatric Problems: No - Gastrointestinal Hx Ulcer: Yes Hx Gastroesophageal Reflux Disease: Yes - Endocrine Hx Renal Disease: Yes (Acute renal failure - Creatinine normal today) Hx End Stage Renal Disease: No Hx Liver Disease: Yes (chronic pancreatitis) Hx Non-Insulin Dependent Diabetes: Yes (not on meds) Hx Thyroid Disease: No - Hematic Hx Anemia: Yes (hgb 7.7 today) - Other Systems Hx Alcohol Use: Yes (3 beers/day) Hx Substance Use: Yes (occasional marijuana) Hx Cancer: No Hx Obesity: No - Additional Comments Anesthesia Medical History Comments: no hx of anesthetic complications
--- NOTE | 2021-07-26 08:28 | Anesthesia Day of Surgery ---
Anesthesia Day of Surgery - Day of Surgery Patient Examined: Yes Patient H&P Reviewed: Yes Patient is NPO: Yes
--- NOTE | 2021-07-26 09:11 | Post Operative Note ---
Pre-op diagnosis: gi bleed Post-op diagnosis: same Findings: EGD: hiatal hernia - mild gastritis (bx's) - 1 cm healed ulcer duodenal bulb (bx) - negative other Procedure: EGD w/ bx Anesthesia: MAC Surgeon: TRAY MONCADA Estimated blood loss: none Pathology: list Specimen disposition: to lab Condition: stable Disposition: floor
--- NOTE | 2021-07-26 09:18 | Post Anesthesia Evaluation ---
- Post Anesthesia Evaluation Patient Participated: Yes Airway Patent: Yes Stable Respiratory Function: Yes Nausea/Vomiting: No Temp > 96.8F: Yes Pain Manageable: Yes Adequeate Hydration: Yes Anesthesia Complications: No
[2021-07-26] MEDS ORDERED: POTASSIUM CHLORIDE ER 20 MEQ TAB PO ONE (11:00)
--- NOTE | 2021-07-26 13:45 | Discharge Summary ---
Providers - Providers Date of Admission: 07/24/21 22:50 Date of discharge: 07/26/21 Attending physician: ZAINA FLOREZ 07/24/21 22:50 Consult to Physician [CONS] Routine Comment: Consulting Provider: JUDAH LEE Physician Instructions: Reason For Exam: gib Primary care physician: NANCY PINTO Hospitalization Condition: Stable Disposition: 01 HOME / SELF CARE / HOMELESS Final Discharge Diagnosis (Prints w/discharge instructions): --Duodenal ulcer. --Gastritis. --Acute GI bleed. --Acute blood loss anemia. --Supratherapeutic INR. --Alcohol abuse. --Chronic alcoholic pancreatitis. --History of replaced mitral valve Time spent for discharge: 34 minutes Core Measure Documentation - Palliative Care Palliative Care/ Comfort Measures: Not Applicable - Core Measures Any of the following diagnoses?: none Exam - Physical Exam Narrative exam: GENERAL: well-developed and well-nourished -German male lying on bed appeared to be in no discomfort. HEENT: Normocephalic. Atraumatic. No conjunctival congestion or icterus. Patient has moist mucous membranes. NECK: Supple. Trachea midline. CHEST/LUNGS: Clear to auscultated bilaterally, breathing nonlabored. No wheezes crackles or rhonchi. HEART/CARDIOVASCULAR: Regular in rate and rhythm. S1 and S2 positive. ABDOMEN: Abdomen is soft, nontender. Patient has normal bowel sounds. SKIN: There is no rash. Warm and dry. NEURO: No focal motor deficit. Follows command. MUSCULOSKELETAL: No joint effusion or tenderness. EXTRIMITY: No edema, no cyanosis or clubbing. PSYCH: Cooperative. - Constitutional Vitals: Temp Pulse Resp BP Pulse Ox 98.8 F 72 16 115/66 100 07/26/21 07:42 07/26/21 07:42 07/26/21 07:42 07/26/21 07:42 07/26/21 07:42 Plan Activity: advance as tolerated Weight Bearing Status: Weight Bear as Tolerated Diet: low fat, low salt Special Instructions: other (Abstinence from alcohol) Additional Instructions: Compliant with medications. Resume Coumadin and check your INR on Wednesday. Follow-up with metal drill operator in 1 week. Repeat CBC in 1 week Follow up with: NANCY PINTO MD [Primary Care Provider] - 3-5 Days TRAY MONCADA MD [Staff Physician] - 7 Days Prescriptions: Pantoprazole [Protonix] 40 mg PO BID #90 tablet
[2021-07-26] MEDS: METOPROLOL TARTRATE 25 MG TAB PO SCH (15:04)
[2021-07-26] MEDS: PANTOPRAZOLE 40 MG INJ IV SCH (15:04)
--- NOTE | 2021-07-26 22:51 | Consultation ---
DATE OF CONSULTATION: 07/25/2021 REFERRING PHYSICIAN: Dr. Michelle Quintana. INDICATIONS: 1. Anemia. 2. Gastrointestinal bleed. HISTORY OF PRESENT ILLNESS: The patient is a 56-year-old black male with history of chronic pancreatitis with mitral regurg and peptic ulcer disease in the past, brought in for increased palpitation. The patient reports 2-3 weeks of black stools, which were actively now resolving. He denies any hematemesis. He denies any nausea or vomiting. Denies any other lower GI symptoms. The patient subsequently came to Emergency Room where he was noted to have a hemoglobin of 4.2 with guaiac positive stool. He subsequently was admitted and GI consulted to aid in management. No other specific complaints. PAST MEDICAL HISTORY: 1. Arthritis. 2. Peptic ulcer disease. 3. Pancreatitis. 4. Diabetes. 5. Hypertension. 6. Renal failure. MEDICATIONS: Reviewed and updated in chart. ALLERGIES: No known drug allergies. SOCIAL HISTORY: Reports social alcohol. Positive smoker. FAMILY HISTORY: Negative for colon cancer, IBD, or liver disease. REVIEW OF SYSTEMS: GENERAL: Reports some weakness. HEENT: No visual complaints or tinnitus. PULMONARY: Denies shortness of breath, chest pain. GASTROINTESTINAL: Reports black stool. All points of 13-point review of system otherwise negative. PHYSICAL EXAMINATION: VITAL SIGNS: Temperature of 98.9, pulse 72, respirations 18, blood pressure 115/66. GENERAL: Well nourished black male in no acute distress. HEENT: Pupils equal, round, reactive. PULMONARY: Clear to auscultation bilaterally. CARDIOVASCULAR: Regular rate and rhythm. Normal S1, S2. ABDOMEN: Positive bowel sounds, soft, mild upper abdominal pain. No guarding, no rebound. SKIN: No obvious rashes. LABORATORY DATA: Pertinent for white count of 8.3, hemoglobin and hematocrit of 4.1 and 13.0 with a platelet count of 215. INR of 5.26. Chem-7 within normal limits. LFTs within normal limits. ASSESSMENT: A 56-year-old male with a history of mitral regurgitation, status post repair, on Coumadin, now presents with racing heart rate with noted 2-3 weeks of black stools and no significantly anemic. Concern for peptic ulcer disease versus other upper GI pathology. PLAN: 1. Follow hematocrit and transfuse as needed. 2. PPI IV b.i.d. 3. N.p.o. at midnight. 4. Plan EGD in a.m. TID: [id number] RECEIPT: [id number] H[place]OL[place]/TOÑA
--- NOTE | 2021-07-26 23:10 | Operative Report ---
DATE OF SURGERY: 07/26/2021 PROCEDURE: EGD with cold biopsies. INDICATIONS: 1. Anemia. 2. Gastrointestinal bleed. MEDICATIONS: Propofol per [employer]OR. COMPLICATIONS: None. DISPOSITION: The patient was brought to the procedure suite. The patient had the procedure discussed with him at length. All risks, complications, and benefits were discussed, after which the patient signed for the procedure to be performed. The patient was placed in left lateral decubitus position. Mouth block placed in the patient's oral cavity. After adequate sedation with medication as above, endoscope placed in the mouth and brought to level of second portion of duodenum. Retroflexion view performed. The patient's vital signs remained stable throughout the procedure. FINDINGS: There was a small hiatal hernia noted at GE junction, 38 cm from the gums. Esophagus otherwise appeared to be normal. There is mild antral gastritis noted. Biopsies were taken and sent to pathology. The remaining stomach otherwise appeared to be normal. There was a 1 cm clean white base ulcer, mostly healed, noted in the distal duodenal bulb. No stigmata of bleeding requiring treatment was noted. The duodenum otherwise appeared to be normal. Retroflexion view performed in the stomach showed no other pathology other than noted above. The patient tolerated the procedure well. No complications during this procedure. IMPRESSION: 1. Hiatal hernia. 2. Otherwise, normal esophagus. 3. Gastritis, biopsies performed. 4. Healed ulcer in the distal duodenal bulb as noted above. 5. Otherwise, normal EGD. RECOMMENDATIONS: 1. Follow up biopsy results. 2. If H. pylori positive, treat. 3. Advance diet. 4. Okay to restart Coumadin with PPI daily. 5. Okay to discharge from GI standpoint if H and H stable. TID: [id number] RECEIPT: [id number] [facility] cc: TRAY MONCADA MD
== END 2021-07-26 15:10 | disposition home or self-care (01) | DRG 378 ==
LOC: ED 20:25 → 4A 22:50
PROVIDERS: ADMIT Hospitalist; ATTEND Internal Medicine
PROC: 30233N1 Transfusion of Nonautologous Red Blood Cells into Peripheral Vein, Percutaneous Approach (ICD-10-PCS; 2021-07-24)
PROC: 0DB68ZX Excision of Stomach, Via Natural or Artificial Opening Endoscopic, Diagnostic (ICD-10-PCS; principal; 2021-07-26)
DX: K29.71 Gastritis, unspecified, with bleeding (principal); K86.0 Alcohol-induced chronic pancreatitis; D62 Acute posthemorrhagic anemia; K92.1 Melena; D64.9 Anemia, unspecified; K70.9 Alcoholic liver disease, unspecified; R00.2 Palpitations; K26.4 Chronic or unspecified duodenal ulcer with hemorrhage; I49.9 Cardiac arrhythmia, unspecified; I10 Essential (primary) hypertension; E11.9 Type 2 diabetes mellitus without complications; K21.9 Gastro-esophageal reflux disease without esophagitis; M19.90 Unspecified osteoarthritis, unspecified site; F10.10 Alcohol abuse, uncomplicated; K44.9 Diaphragmatic hernia without obstruction or gangrene
CPT/HCPCS: 36415; 71045; 80048; 80053; 82270; 82550; 82553; 83690; 83735; 84484; 85025; 85610; 86850; 86900; 86901; 86920; 88305; 88342; 93005; 94640; 99406; G0378; J3490; J7070; J7120; Q0162; C9113; J2405; J2704; J3430; J7030; J7040; P9016